=== PATIENT | male | born 1965 | race Two or more races ===

== ENCOUNTER → 2021-02-26 15:16 | Outpatient (BNVA) | payer MEDICAID, SELFPAY | PROVIDERS: PCP Internal Medicine; Visit Provider Urology | DX: N40.0 Benign prostatic hyperplasia without lower urinary tract symptoms (principal); N52.9 Male erectile dysfunction, unspecified | CPT/HCPCS: 51798; 81002; 99212 ==

== ENCOUNTER → 2022-02-27 13:36 | Outpatient (BNVA) | payer MEDICAID, SELFPAY | PROVIDERS: PCP Internal Medicine; Visit Provider Urology | DX: N40.0 Benign prostatic hyperplasia without lower urinary tract symptoms (principal); N52.9 Male erectile dysfunction, unspecified | CPT/HCPCS: 51798; 99212 ==

== ENCOUNTER 2023-03-01 08:17 | Outpatient (REF) | payer OTHER, SELFPAY ==
[2023-03-01 09:38] LABS: Prostate Specific Antigen 1.06 ng/mL (<0.05-4.0)
== END 2023-03-01 08:18 | disposition home or self-care (01) ==
LOC: HO.LAB 08:17
PROVIDERS: PCP Internal Medicine; Visit Provider Urology
DX: Z12.5 Encounter for screening for malignant neoplasm of prostate (principal); N40.1 Benign prostatic hyperplasia with lower urinary tract symptoms; N13.8 Other obstructive and reflux uropathy; N52.9 Male erectile dysfunction, unspecified
CPT/HCPCS: 36415; 84153

== ENCOUNTER → 2023-03-05 13:26 | Outpatient (BNVA) | payer OTHER, SELFPAY | PROVIDERS: PCP Internal Medicine; Visit Provider Urology | DX: N40.1 Benign prostatic hyperplasia with lower urinary tract symptoms (principal); R39.15 Urgency of urination; N52.9 Male erectile dysfunction, unspecified | CPT/HCPCS: 99212 ==

== ENCOUNTER 2023-06-10 09:28 | Outpatient (AMB) | payer OTHER, SELFPAY ==
--- NOTE | 2023-06-10 09:39 | A.OFFVIS_ITS ---
Intake Intake Visit Reasons: 3m follow up/PVR Intake Note: Patient is present for Follow Up PVR Urology Med: Tadalafil, Sildenafil, Antibiotic Allergy: Penicillin Blood Thinner: Aspirin [facility] PVR: 488ml Allergies penicillin V Allergy (Unknown, Verified 06/10/23 09:40) anaphylaxis HPI HPI Comments History of Present Illness Details Mr. Zuluaga is a male. He is a patient of Dr. Roman. He is here for reevaluation of his lower urinary tract symptoms. - lower urinary tract symptoms - erectile dysfunction Tamazight translation provided in the office by qualified medical records analyst Continues to do well with sildenafil 100 mg on demand Effective bladder voiding Lower Urinary Tract Symptoms: PSA low Symptoms controlled Current visit is for further evaluation of, predominate irritative symptoms. Current treatment includes observation. Prior treatments include procedure - TURP 2013, MISAEL 04/24 - bladder neck contraction. Prostate Symptom Score 06/24 Severe (20+), Bother 2 08/24 , Moderate (9-19), Bother 2 07/26 , Mild (0-8), Bother 3. Symptoms include frequency, intermittency, urgency,, and are improving 07/26 , frequency, and are stable. PSA 05/24 1.8 06/25 1.0, 02/25 2.3, 02/26 0.8, 02/28 1.1 Prostate volume < 30 gm. Associated conditions CAD No CVA No diabetes Yes elevated PSA No erectile dysfunction yes Treatment plan f/u in 12m Erectile dysfunction: In setting of diabetes Prescription provided for 100 mg tablet Procedure(s)/Diagnosis causing dysfunction include diabetes. Current treatment includes Viagra/sildenafil. At this time he experiences erections 07/26 are partial and adequate for vaginal penetration, that undergo rapid detumesence after penetration, TONE 8-11 Moderate ED 02/24 , are full, rigid and adequate for vaginal penetration. Nocturnal erections do not occur. Currently they are in a stable relationship. Associated problems hypertension Yes diabetes Yes dyslipidemia Yes depression No stress No decreased libido No pelvic surgery No Overall he is satisfied with the current management. Therapeutic plan includes maintaining current therapy PFSH Medical History Arthritis Bipolar disorder Bladder neck contracture BPH w/o urinary obs/LUTS Diabetic autonomic neuropathy associated with secondary diabetes mellitus H/O urinary frequency Neurogenic bladder Weak urinary stream Surgical History History of surgery Review of Systems Const Denies chills and Denies fever(s) Card Reports no additional complaints and Denies syncope Resp Denies cough GI Denies abdominal pain and Denies heartburn Reports as per HPI and Denies change in libido Neuro Denies syncope Psych Denies change in libido Endo Denies change in libido Physical Exam Const General: cooperative, healthy appearing, comfortable and no acute distress Orientation/consciousness: patient oriented x3 HEENT Face and sinus: Yes normal facial exam Mouth: moist mucous membranes Neck Neck: Yes normal visual inspection, Yes full ROM and Yes trachea midline Chest Chest palpation & inspection: normal inspection of the chest Resp Effort & Inspection: normal respiratory effort, able to speak in complete sentences and no respiratory distress GI Inspection: Yes normal to inspection Back/Spine/Pelvis Cervical Spine: normal cervical lordosis Thoracic/Lumbar Spine: thoracic and lumbar spine normal to inspection Skin General skin exam: no rashes or lesions noted Neuro General: patient oriented x3, gait normal, tone normal and moves all extremities Extrem General: Yes normal to inspection and Yes capillary refill normal Office Procedures Post Void Residual Post Residual Void Post Void Residual (PVR): 488 [id number] Void Residual by ultrasound Results AMB Urinalysis, Automated UA Leukoctes 0 Teo/uL Last Edit by DAVID Lacy on 06/10/23 09:46 UA Nitrite Negative Last Edit by DAVID Lacy on 06/10/23 09:46 UA Urobilinogen 0.2 mg/dL Last Edit by DAVID Lacy on 06/10/23 09:4 6 UA Protein 0 mg/dL Last Edit by DAVID Lacy on 06/10/23 09:46 UA pH 6.0 Last Edit by DAVID Lacy on 06/10/23 09:46 UA Blood 0 Kennedy/uL Last Edit by DAVID Lacy on 06/10/23 09:46 UA Specific [place] 1.010 Last Edit by DAVID Lacy on 06/10/23 09: 46 UA Ketone Negative Last Edit by DAVID Lacy on 06/10/23 09:46 UA Bilirubin 0 mg/dL Last Edit by DAVID Lacy on 06/10/23 09:46 UA Glucose 0 mg/dL Last Edit by DAVID Lacy on 06/10/23 09:46 Results Reviewed Results Reviewed: Laboratory Last Values Urine pH (Auto) 6.0 06/10/23 09:41 Specific [place] (Auto) 1.010 06/10/23 09:41 Urine Protein (Auto) 0 mg/dL 06/10/23 09:41 Glucose (UA)(Auto) 0 mg/dL 06/10/23 09:41 Urine Ketones (Auto) Negative 06/10/23 09:41 Urine Blood (Auto) 0 Kennedy/uL 06/10/23 09:41 Urine Nitrite (Auto) Negative 06/10/23 09:41 Urine Bilirubin (Auto) 0 mg/dL 06/10/23 09:41 Urine Urobilinogen (Auto) 0.2 mg/dL 06/10/23 09:41 Leukocyte Esterase (Auto) 0 Teo/uL 06/10/23 09:41 Assessment & Plan Assessment & Plan (1) Urinary urgency: Code(s): R39.15 - Urgency of urination (2) Erectile dysfunction: Code(s): N52.9 - Male erectile dysfunction, unspecified Plan Two month follow-up Orders: Orders AMB Urinalysis Automated Today Z13.9 - Encounter for screening, unspecified AMB Post Void Residual by ultrasound Today N40.0 - Benign prostatic hyperplasia without lower urinary tract symptoms Patient Instructions: Imaging studies, laboratory and physical exam results were discussed and reviewed in detail. No major barriers to patient understanding were identified. An opportunity to ask questions regarding the treatment plan was provided. All questions were answered. The patient expressed understanding and agreement with the above treatment plan. The patient is aware they should contact our office by phone for worsening of their current condition or the appearance of new urologic symptoms. Compliance is encouraged with any medications and followup testing that is ordered. It is a privilege to participate in the urologic care of your patient. If you have any questions or concerns regarding treatment for the above conditions, or other urologic issues, please do not hesitate to contact me. The office telephone contact is [phone]. This note is constructed using voice recognition software. While every effort has been made to ensure accuracy vault clerk errors may have been included. Yours sincerely, Dr Wilton Boss MD, F[facility] - Urology Providers of Expert, Compassionate Care for the Genitourinary System Coding Level of Care Code Est Pt Level 4 (54387) Diagnoses Urinary urgency R39.15 Erectile dysfunction N52.9 CPT Codes Post Residual Void - PVR CPT Code: 05847-Vish Void Residual by ultrasound ([id number])
== END 2023-06-10 11:43 | disposition home or self-care (01) ==
PROVIDERS: Visit Provider Urology
DX: R39.15 Urgency of urination (principal); E11.69 Type 2 diabetes mellitus with other specified complication; N52.9 Male erectile dysfunction, unspecified
CPT/HCPCS: 99213

== ENCOUNTER → 2023-06-10 09:28 | Outpatient (BNVA) | payer OTHER, SELFPAY | PROVIDERS: Visit Provider Urology | DX: R39.15 Urgency of urination (principal); N52.9 Male erectile dysfunction, unspecified | CPT/HCPCS: 51798; 99212 ==

== ENCOUNTER 2024-06-07 13:19 | Outpatient (AMB) | payer OTHER, SELFPAY ==
--- NOTE | 2024-06-07 13:22 | A.OFFVIS_ITS ---
Intake Visit Reasons: 1Y Follow Up-PVR Intake Note: Patient is Present for PVR/ Urology Med: Tadalafil, Sildenafil Antibiotic Allergy: Penicillin Blood Thinner: Aspirin Last PVR: 488 Todays PVR: 461 Costumed Character Required: Yes Costumed Character Language: Kinyarwanda Allergies penicillin V Allergy (Unknown, Verified 06/10/23 09:40) anaphylaxis HPI Comments Details: Mr. Zuluaga is a male. He is a patient of Dr. Roman. He is here for reevaluation of his lower urinary tract symptoms. - lower urinary tract symptoms - erectile dysfunction Kinyarwanda translation provided in the office by qualified medical services assistant Large PVR 460 PSA remains low Describes effective urinary stream Only waking once at night Multiple prior bladder neck procedures which was opened on last cystoscopy Lower Urinary Tract Symptoms: Impaired contractility secondary to diabetes PSA low Symptoms controlled Current visit is for further evaluation of, predominate imitative symptoms. Current treatment includes observation. Prior treatments include procedure - TURP 2013, MISAEL 04/24 - bladder neck contraction. Prostate Symptom Score 06/24 Severe (20+), Bother 2 08/24 , Moderate (9-19), Bother 2 07/26 , Mild (0-8), Bother 3. Symptoms include frequency, intermittency, urgency,, and are improving 07/26 , frequency, and are stable. PSA 05/24 1.8 06/25 1.0, 02/25 2.3, 02/26 0.8, 02/28 1.1 Prostate volume < 30 gm erectile dysfunction yes Treatment plan f/u in 12m Erectile dysfunction: In setting of diabetes Prescription provided for 100 mg tablet Procedure(s)/Diagnosis causing dysfunction include diabetes. Current treatment includes Viagra/sildenafil. At this time he experiences erections 07/26 are partial and adequate for vaginal penetration, that undergo rapid detumesence after penetration, TONE 8-11 Moderate ED 02/24 , are full, rigid and adequate for vaginal penetration. Nocturnal erections do not occur. Currently they are in a stable relationship. Associated problems hypertension Yes diabetes Yes dyslipidemia Yes depression No stress No decreased libido No pelvic surgery No Overall he is satisfied with the current management. Therapeutic plan includes maintaining current therapy PFSH Medical History Arthritis Bipolar disorder Bladder neck contracture BPH w/o urinary obs/LUTS Diabetic autonomic neuropathy associated with secondary diabetes mellitus H/O urinary frequency Neurogenic bladder Weak urinary stream Surgical History History of surgery Review of Systems Const Denies chills and Denies fever(s) Card Reports no additional complaints and Denies syncope Resp Denies cough GI Denies abdominal pain and Denies heartburn Reports as per HPI and Denies change in libido Neuro Denies syncope Psych Denies change in libido Endo Denies change in libido Physical Exam Const General: cooperative, healthy appearing, comfortable and no acute distress Orientation/consciousness: patient oriented x3 HEENT Face and sinus: Yes normal facial exam Mouth: moist mucous membranes Neck Neck: Yes normal visual inspection, Yes full ROM and Yes trachea midline Chest Chest palpation & inspection: normal inspection of the chest Resp Effort & Inspection: normal respiratory effort, able to speak in complete sentences and no respiratory distress GI Inspection: Yes normal to inspection Back/Spine/Pelvis Cervical Spine: normal cervical lordosis Thoracic/Lumbar Spine: thoracic and lumbar spine normal to inspection Skin General skin exam: no rashes or lesions noted Neuro General: patient oriented x3, gait normal, tone normal and moves all extremities Extrem General: Yes normal to inspection and Yes capillary refill normal Office Procedures Post Void Residual Post Residual Void Post Void Residual (PVR): [id number] Void Residual by ultrasound Assessment & Plan Assessment & Plan (1) Erectile dysfunction: Code(s): N52.9 - Male erectile dysfunction, unspecified Category: Medical (2) BPH w/o urinary obs/LUTS: Code(s): N40.0 - Benign prostatic hyperplasia without lower urinary tract symptoms Category: Medical Plan Twelve month follow-up Patient Instructions: Imaging studies, laboratory and physical exam results were discussed and reviewed in detail. No major barriers to patient understanding were identified. An opportunity to ask questions regarding the treatment plan was provided. All questions were answered. The patient expressed understanding and agreement with the above treatment plan. The patient is aware they should contact our office by phone for worsening of their current condition or the appearance of new urologic symptoms. Compliance is encouraged with any medications and followup testing that is ordered. It is a privilege to participate in the urologic care of your patient. If you have any questions or concerns regarding treatment for the above conditions, or other urologic issues, please do not hesitate to contact me. The office telephone contact is [phone]. This note is constructed using voice recognition software. While every effort has been made to ensure accuracy top closer errors may have been included. Yours sincerely, Dr Wilton Boss MD, F[facility] - Urology Providers of Expert, Compassionate Care for the Genitourinary System Coding Level of Care Code Est Pt Level 4 (15783) Diagnoses Erectile dysfunction N52.9 BPH w/o urinary obs/LUTS N40.0 CPT Codes Post Residual Void - PVR CPT Code: 33754-Azab Void Residual by ultrasound ([id number])
== END 2024-06-07 13:38 | disposition home or self-care (01) ==
PROVIDERS: PCP Internal Medicine; Visit Provider Urology
DX: N52.9 Male erectile dysfunction, unspecified (principal); N40.0 Benign prostatic hyperplasia without lower urinary tract symptoms
CPT/HCPCS: 99214

== ENCOUNTER → 2024-06-07 13:19 | Outpatient (BNVA) | payer OTHER, SELFPAY | PROVIDERS: PCP Internal Medicine; Visit Provider Urology | DX: N52.9 Male erectile dysfunction, unspecified (principal); N40.0 Benign prostatic hyperplasia without lower urinary tract symptoms | CPT/HCPCS: 51798; 99212 ==

== ENCOUNTER 2025-07-18 11:08 | Outpatient (AMB) | payer OTHER, SELFPAY ==
--- NOTE | 2025-07-18 11:20 | MHC.OFFVIS ---
Intake Visit Reasons: yearly follow up/PVR Intake Note: patient presents today for: 1yr follow up/PVR urology medications: none blood thinners: aspirin today's PVR: 0mls Hearing Therapy Teacher Required: Yes Accompanied by: Self / Same As Patient Allergies penicillin V Allergy (Unknown, Verified 07/18/25 11:21) anaphylaxis HPI Comments Details: Mr. Zuluaga is a male. He is a patient of Dr. Roman. He is here for reevaluation of his lower urinary tract symptoms. - lower urinary tract symptoms - erectile dysfunction Divehi translation provided in the office by qualified medical administrative technician Effective bladder emptying Remain on tadalafil 5 mg daily 12 month follow-up Lower Urinary Tract Symptoms: Impaired contractility secondary to diabetes PSA low Symptoms controlled Current visit is for further evaluation of, predominate imitative symptoms. Current treatment includes observation. Prior treatments include procedure - TURP 2013, MISAEL 04/24 - bladder neck contraction. Prostate Symptom Score 06/24 Severe (20+), Bother 2 08/24 , Moderate (9-19), Bother 2 07/26 , Mild (0-8), Bother 3. Symptoms include frequency, intermittency, urgency,, and are improving 07/26 , frequency, and are stable. PSA 05/24 1.8 06/25 1.0, 02/25 2.3, 02/26 0.8, 02/28 1.1 Prostate volume < 30 gm erectile dysfunction yes Treatment plan f/u in 12m Erectile dysfunction: In setting of diabetes Prescription provided for 100 mg tablet Procedure(s)/Diagnosis causing dysfunction include diabetes. Current treatment includes Viagra/sildenafil. At this time he experiences erections 07/26 are partial and adequate for vaginal penetration, that undergo rapid detumesence after penetration, TONE 8-11 Moderate ED 02/24 , are full, rigid and adequate for vaginal penetration. Nocturnal erections do not occur. Currently they are in a stable relationship. Associated problems hypertension Yes diabetes Yes dyslipidemia Yes depression No stress No decreased libido No pelvic surgery No Overall he is satisfied with the current management. Therapeutic plan includes maintaining current therapy PFSH Medical History Arthritis Bipolar disorder Bladder neck contracture BPH w/o urinary obs/LUTS Diabetic autonomic neuropathy associated with secondary diabetes mellitus H/O urinary frequency Neurogenic bladder Weak urinary stream Surgical History History of surgery Results AMB Urinalysis, Automated UA Leukoctes 0 Teo/uL Last Edit by MORE Church on 07/18/25 16:00 UA Nitrite Last Edit by Aileen Oliva, [facility] on 07/18/25 16:00 UA Urobilinogen 0.2 mg/dL Last Edit by Aileen Oliva, [facility] on 07/18/25 16:00 UA Protein 0 mg/dL Last Edit by Aileen Oliva, [facility] on 07/18/25 16:00 UA pH 6.5 Last Edit by Aileen Oliva, [facility] on 07/18/25 16:00 UA Blood 0 Kennedy/uL Last Edit by Aileen Oliva, [facility] on 07/18/25 16:00 UA Specific [place] 1.005 Last Edit by Aileen Oliva, [facility] on 07/18/25 16:00 UA Ketone Last Edit by Aileen Oliva, [facility] on 07/18/25 16:00 UA Bilirubin 0 mg/dL Last Edit by Aileen Oliva, [facility] on 07/18/25 16:00 UA Glucose 0 mg/dL Last Edit by Aileen Oliva [facility] on 07/18/25 16:00 Assessment & Plan Assessment & Plan Orders: Orders AMB Urinalysis Automated Today Z13.9 - Encounter for screening, unspecified Medications: Changed From sildenafil administer 60 minutes before intended activity 100 mg PO .prn 30 days PRN 30 tabs 1RF sexual activity N52.9 - Male erectile dysfunction, unspecified To sildenafil administer 60 minutes before intended activity - [id number] [facility] GroupGDRX Member [id number] 100 mg PO ONCE 30 days PRN 30 tabs 1RF sexual activity N52.9 - Male erectile dysfunction, unspecified Refilled tadalafil 5 mg PO DAILY 90 days 90 tabs 1RF E11.69 - Type 2 diabetes mellitus with other specified complication, N52.1 - Erectile dysfunction due to diseases classified elsewhere, R39.15 - Urgency of urination Coding
--- OUTSIDE RECORDS SUMMARY | 2025-07-18 14:19 | XMS_ITS | Clinical Summary ---
Author Organization [address] [place] [address] [place] [phone] Phone Care Team Providers Care Frame Pulley Mortising Machine Operator Name Role Phone Ileana Roman MD Primary Care Provider [phone] Allergies Active Allergy Reactions Criticality Noted Date Comments Lisinopril Congestion of the throat,Sore Throat Medium 10/05/2024 Penicillin G Rash Medium 10/05/2024 Medications aspirin 81 mg EC tablet Take 1 tablet (81 mg total) by mouth 1 (one) time each day. Active amLODIPine (NORVASC) 10 mg tablet 07/11/2024 Active atorvastatin (LIPITOR) 20 mg tablet 10/17/2020 Active carvediloL (COREG) 25 mg tablet 10/31/2020 Active clonazePAM (KlonoPIN) 0.5 mg tablet 10/04/2020 Active Breo Ellipta 200-25 mcg/dose inhaler 09/11/2024 Active gabapentin (NEURONTIN) 100 mg capsule Take 1 capsule (100 mg total) by mouth. Active indapamide (LOZOL) 1.25 mg tablet 02/23/2024 Active metFORMIN (GLUCOPHAGE) 500 mg tablet 08/22/2024 Activ e omeprazole (PriLOSEC) [address] capsule 11/02/2020 Activ e Vitamin B-2 100 mg tablet 09/18/2024 Active cyclobenzaprine (FLEXERIL) 10 mg tablet Take 1 tablet (10 mg total) by mouth 2 (two) times a day if needed for muscle spasms for up to 7 days. 14 each 11/19/2024 Active cetirizine (ZyrTEC) 10 mg tablet Take 1 tablet (10 mg total) by mouth 1 (one) time each day. 30 each 12/01/2024 Active Active Problems No known active problems Medical History Medical History Date Comments Diabetes mellitus ([facility] V24, [facility] V28) Bipolar disorder ([facility] V24, [facility] V28) Arthritis Hypertension Social History Tobacco Use Types Packs/Day Years Used Date Smoking Tobacco: Former Cigarettes Smokeless Tobacco: Never Tobacco Cessation:Counseling Given: Not Answered Alcohol Use Standard Drinks/Week Comments Never 0 (1 standard drink = 0.6 oz pur e alcohol) Sex and Gender Information Value Date Recorded Sex Assigned at Male 12/12/2024 5:13 PM EST Legal Sex Male 2:14 AM EST Gender Identity Male 12/12/2024 5:13 PM EST Sexual Orientation Straight 12/12/2024 5: 13 PM EST Obstetrics History Last Filed Vital Signs Vital Sign Reading Time Taken Comments Blood Pressure 167/80 01/15/2025 7:23 AM EDT Pulse 79 01/15/2025 7:23 AM EDT Temperature 36.6 C (97.9 F) 01/15/2025 7:23 AM EDT Respiratory Rate 20 01/15/2025 7:23 AM EDT Oxygen Saturation 96% 01/15/2025 7:23 AM EDT Inhaled Oxygen Concentration - - Weight 95.7 kg (211 lb) 01/15/2025 7:23 AM EDT Height 172.7 cm (5' 8 ) 01/15/2025 7:23 AM EDT Body Mass Index 32.08 01/15/2025 7:23 AM EDT Plan of Treatment Health Maintenance Due Date Last Done Comments Diabetes: Annual Foot Exam 1973 Diabetes: Annual Retina Eye Exam 1973 HIV Screening 10/11/2022 Hepatitis C Screening 10/11/2022 Social Influencers of Health Screening 10/11/2022 Colorectal Cancer Screening: Colonoscopy 03/17/2023 03/17/2013 Diabetes: Annual Urine Albumin-Creatinine Ratio (uACR) 10/04/2024 Depression Screening 11/08/2024 Diabetes: Blood Sugar Control Test (HGBA1C) 01/03/2025 07/03/2024, 07/03/2024, 09/03/2022 Influenza Vaccine (#1) 2025 , 11/25/2023, 07/24/2022, Additional history exists Diabetes: Annual GFR (Glomerular Filtration Rate) 11/30/2025 11/30/2024, 11/19/2024 Hypertension/CHF/CAD Annual BMP Blood Test 11/30/2025 11/30/2024, 11/19/2024 Cholesterol Screening (Lipid Panel) 09/03/2027 09/03/2022 DTaP,Tdap,and Td Vaccines (2 - Td or Tdap) 10/20/2028 10/20/2018 Zoster Vaccines Completed 03/26/2021, 01/07, 10/21/2018 Pneumococcal Vaccine: 50+ Years Completed 05/27/2023, 07/08/2018, 02/24/2016, Additional history exists COVID-19 Vaccine Completed 07/11/2024, , 03/17/2022, Additional history exists RSV Immunization Adult Patients Completed 10/09/2024 HIB Vaccines Aged Out No longer eligi ble based on patient's age to complete this topic HPV Vaccines Aged Out No longer eligi ble based on patient's age to complete this topic Hepatitis A Vaccines Aged Out No long er eligible based on patient's age to complete this topic Hepatitis B Vaccines Aged Out No long er eligible based on patient's age to complete this topic IPV Vaccines Aged Out No longer eligi ble based on patient's age to complete this topic MMR Vaccines Aged Out No longer eligi ble based on patient's age to complete this topic Meningococcal ACWY Vaccine Aged Out N o longer eligible based on patient's age to complete this topic Meningococcal B Vaccine Aged Out No l onger eligible based on patient's age to complete this topic RSV Immunization Patients Under 20 months Aged Out No longer eligible based on patient's age to complete this topic Varicella Vaccines Aged Out No longer eligible based on patient's age to complete this topic Procedures Procedure Name Priority Date/Time Associated Diagnosis Comments BASIC METABOLIC PANEL STAT 11/30/2024 8:54 PM EST EXTERNAL COLONOSCOPY REPORT Routine 03/17/2013 3:13 PM EDT from Last 3 Months or Most Recently Relevant to Health Maintenance Results * (ABNORMAL) Basic metabolic panel (11/30/2024 8:54 PM EST) Sodium 134 133 - 145 mmol/L LAB CHEMISTRY METHOD 11/30/2024 9:40 PM [facility] Potassium 3.7 3.5 - 5.5 mmol/L LAB CHEMISTRY METHOD 11/30/2024 9:40 PM [facility] Chloride 99 96 - 110 mmol/L LAB CHEMISTRY METHOD 11/30/2024 9:40 PM [facility] CO2 28 21 - 32 mmol/L LAB CHEMISTRY METHOD 11/30/2024 9:40 PM [facility] Anion Gap 7 3 - 11 LAB CHEMISTRY METHOD 11/30/2024 9:40 PM [facility] Glucose 143(H) 70 - 100 mg/dL LAB CHEMISTRY METHOD 11/30/2024 9:40 PM [facility] BUN 13 5 - 25 mg/dL LAB CHEMISTRY METHOD 11/30/2024 9:40 PM [facility] Creatinine 1.01 0.70 - 1.30 mg/dL LAB CHEMISTRY METHOD 11/30/2024 9:40 PM [facility] eGFR 85 >=60 mL/min/1. 73m2 LAB CHEMISTRY METHOD 11/30/2024 9:40 PM [facility] Comment:Calculation based on the Chronic Kidney Disease Epidemiology Collaboration (CKD-EPI) equation refit without adjustment for race. BUN/Creatinine Ratio 12.9 LAB CHEMISTRY METHOD 11/30/2024 9:40 PM [facility] Calcium 8.9 8.5 - 10.5 mg/dL LAB CHEMISTRY METHOD 11/30/2024 9:40 PM [facility] Blood Venous blood specimen / Unknown Venipuncture / Unknown 11/30/2024 8:54 PM EST 11/30/2024 9:14 PM EST [facility] BLOOD ORDERABLES Final Resul t [facility] [address] [place] [address], * External Colonoscopy Report (03/17/2013 3:13 PM EDT) Anatomical Region Laterality Modality Endoscopy Historical Provider GI~PROCEDURE ORDERABLES F inal Result from Last 3 Months or Most Recently Relevant to Health Maintenance [place] [address] [address] [place] [address] [id number] [employer] [place] [employer] [address] [place] [address] Care Teams Frame Pulley Mortising Machine Operator Relationship Specialty Start Date End Date Ileana Roman MD [address] [place] [address] PCP - General 05/05/13
--- OUTSIDE RECORDS SUMMARY | 2025-07-18 14:19 | XMS_ITS | Encounter Summary ---
Author Organization [facility] Address [address] [place] [address] Phone Care Team Providers Care Spring Tacker Name Role Phone Ileana Roman MD Primary Care Provider +1- [phone] Encounter Details Date Type Department Care Team (Late st Contact Info) Description 05/12/2022 Documentation Only [facility] [address] [place] [address] Leonid Medrano MD [address] [place] [address] [place] [address] Social History Tobacco Use Types Packs/Day Years Used Date Smoking Tobacco: Former Cigarettes Q uit: 06/10/1991 Comments:Smoking History Inf o:Every day Sex and Gender Information Value Date Recorded Sex Assigned at Not on file Legal Sex Male 4:33 PM EST Gender Identity Not on file Sexual Orientation Not on file documented as of this encounter Plan of Treatment Upcoming Encounters Date Type Department Care Team (Late st Contact Info) Description 08/02/2025 10:40 AM EDT Office Visit [facility] [address] [place] [address] Ck Trinidad MD [address] [place] [address] [place] [address] documented as of this encounter Visit Diagnoses Not on filedocumented in this encounter Care Teams Spring Tacker Relationship Specialty Start Date End Date Ileana Roman MD [address] [facility] [place], [place] PCP - General 09/12/19 documented as of this encounter
--- OUTSIDE RECORDS SUMMARY | 2025-07-18 14:19 | XMS_ITS | Encounter Summary ---
Author Organization [facility] Address [address] [place] [address] Phone Care Team Providers Care Space Systems Operations Craftsman Name Role Phone Ileana Roman MD Primary Care Provider +1- [phone] Encounter Details Date Type Department Care Team (Late st Contact Info) Description 08/02/2023 Orders Only [facility] [address] [place] [address] Philip Bautista PA [address] [place] [address] [place] [address] Chronic kidney disease stage 2; Hypertensive disorder; Type 2 diabetes mellitus without complication (HCC) Social History Tobacco Use Types Packs/Day Years [...] Visit [facility] [address] [place] [address] Ck Trinidad MD [address] [place] [address] [place] [address] documented as of this encounter Procedures Procedure Name Priority Date/Time Associated Diagnosis Comments PROTEIN / CREATININE RATIO, URINE Routine 08/10/2023 1:21 PM EDT Chronic kidney disease stage 2 Hypertensive disorder Type 2 diabetes mellitus without complication (HCC) URINALYSIS WITH MICROSCOPIC Routine 08/10/2023 1:21 PM EDT Chronic kidney disease stage 2 Hypertensive disorder Type 2 diabetes mellitus without complication (HCC) IRON PANEL (FE, TIBC, TSAT) Routine 08/10/2023 1:19 PM EDT Chronic kidney disease stage 2 Hypertensive disorder Type 2 diabetes mellitus without complication (HCC) VITAMIN D 25 HYDROXY Routine 08/10/2023 1:19 PM EDT Chronic kidney disease stage 2 Hypertensive disorder Type 2 diabetes mellitus without complication (HCC) CBC AND DIFFERENTIAL Routine 08/10/2023 1:19 PM EDT Chronic kidney disease stage 2 Hypertensive disorder Type 2 diabetes mellitus without complication (HCC) HEMOGLOBIN A1C Routine 08/10/2023 1:19 PM EDT Chronic kidney disease stage 2 Hypertensive disorder Type 2 diabetes mellitus without complication (HCC) RENAL FUNCTION PANEL Routine 08/10/2023 1:19 PM EDT Chronic kidney disease stage 2 Hypertensive disorder Type 2 diabetes mellitus without complication (HCC) documented in this encounter Results * Urine Protein / creatinine ratio (08/10/2023 1:21 PM EDT) Protein/Creat ine Ratio Unable to calculate (0-0.2) [facility] Protein, Urine <4 MG/DL [facility] Creatinine, Urine 36.5 MG/DL [facility] Comment: Testing performed or reported by [facility], a Service of [facility], [address] [place] [address] Baljinder Syed MD, Crew Caller [facility]# [id number] Urine specimen (specimen) Urine specimen obtained by clean catch procedure / Unknown 08/10/2023 1:21 PM EDT 08/10/2023 1:50 PM EDT Philip [facility] URINE ORDERABLES Final Re sult [facility] * Urinalysis with microscopic (08/10/2023 1:21 PM EDT) Appearance YELLOW [facility] Comment:CLEAR Specific Meridian 1.009 (1.002-1. 030) [facility] pH Urine 7.0 (5.0-8.0) [facility] Albumin, Urine NEGATIVE (NEG) [facility] Glucose, Ur NEGATIVE (NEG) [facility] Ketones, Urine NEGATIVE (NEG) [facility] Bilirubin Urine NEGATIVE (NEG) [facility] Hemoglobin Presence in Urine NEGATIVE (NEG) [facility] Nitrite, Urine NEGATIVE (NEG) [facility] Leukocyte Esterase Urine NEGATIVE (NEG) [facility] Urobilinogen Urine NORMAL (NORM) MG/DL [facility] WBC, Urine <1 (0-5) /HPF [facility] RBC, Urine 1 (0-3) /HPF [facility] Comment: Testing performed or reported by [facility], a Service of [facility], [address] [place] [address] Baljinder Syed MD, Crew Caller CLIA# [id number] Urine specimen (specimen) Urine specimen obtained by clean catch procedure / Unknown 08/10/2023 1:21 PM EDT 08/10/2023 1:50 PM EDT Philip [facility] URINE ORDERABLES Final Re sult Performing Organization Address [facility] de Phone Number [facility] * Vitamin D 25 hydroxy (08/10/2023 1:19 PM EDT) Pathologist [facility] Vitamin D, 25-Hydroxy 40.3 (20-50) NG/ML [facility] Comment: Testing performed or reported by [facility], a Service of [facility], [address] [place] [address] Baljinder Syed MD, Crew Caller CLIA# [id number] Blood specimen (specimen) Venous blood / Unknown 08/10/2023 1:19 PM EDT 08/10/2023 1:20 PM EDT Philip [facility] BLOOD ORDERABLES Final Re sult Performing Organization Address [facility] Co de Phone Number [facility] * Renal function panel (08/10/2023 1:19 PM EDT) Glucose 90 (70-99) MG/DL [facility] BUN 16 (8-23) MG/DL [facility] Creatinine 1.0 (0.7-1.2) MG/DL [facility] Sodium 139 (133-145) MMOL/L [facility] Potassium 4.0 (3.6-5.2) MMOL/L [facility] Chloride 99 (98-107) MMOL/L [facility] Bicarbonate (CO2) 27 (22-29) MMOL/L [facility] Anion Gap 13 (4-17) [facility] Albumin 4.4 (3.4-4.8) GM/DL [facility] Calcium 9.7 (8.6-10.5) MG/DL [facility] Phosphorus, Serum 3.9 (2.5-4.5) MG/DL [facility] Est GFR Non 83 ML/MIN/1.7 3 M2 [facility] Comment: Creatinine based estimated glomerular filtration (eGFR) in adults is calculated using the National Kidney Foundation recommended 2020 CKD-EPI equation. Estimates GFR from serum creatinine, age and sex. Testing performed or reported by [facility], a Service of [facility], [address] [place] [address] Baljinder Syed MD, Crew Caller [facility]# [id number] Blood specimen (specimen) Venous blood / Unknown 08/10/2023 1:19 PM EDT 08/10/2023 1:20 PM EDT Philip [facility] BLOOD ORDERABLES Final Re sult [facility] * Iron Panel (Fe, TIBC, TSAT) (08/10/2023 1:19 PM EDT) Iron 77 (45-160) MCG/DL [facility] UIBC 209 (110-370) MCG/DL [facility] TIBC 286 (155-530) MCG/DL [facility] Iron Saturation (TSat) 27 (20-55) % [facility] Comment: Testing performed or reported by [facility], a Service of [address] [address] Baljinder Syed MD, Crew Caller CLIA# [id number] Blood specimen (specimen) Venous blood / Unknown 08/10/2023 1:19 PM EDT 08/10/2023 1:20 PM EDT Philip [facility] BLOOD ORDERABLES Final Re sult Performing Organization Address [facility] de Phone Number [facility] * (ABNORMAL) Hemoglobin A1c (08/10/2023 1:19 PM EDT) Hemoglobin A1C 6.5(H) (4.0-5.6) % [facility] Comment: MONITORING: In known diabetic patients, hemoglobin A1c targets should be discussed with health care provider. DIAGNOSTIC USE: The [place] Diabetes Association (ADA) and the World Health Organization (WHO) recommend the use of HbA1c to diagnose diabetes using a threshold of 6.5%. Patients who have an HbA1c between 5.7% and 6.4% are considered at increased risk for developing diabetes in the future. CAUTION: Falsely low HbA1c results may be observed in patients with hemolytic anemia, homozygous forms of abnormal hemoglobin (e.g. SS, CC, SC), , recent blood loss or hemoglobin F greater than 7%. Fructosamine may be used as an alternate test in these cases. REFERENCE: ADA: Standards of Medical Care in Diabetes 2020, The Journal of Clinical and Applied Research and Education Volume 43, Supplement 1 Testing performed or reported by [facility], a Service of [facility], [address] [place] [address] Baljinder Syed MD, Crew Caller [facility]# [id number] Blood specimen (specimen) Venous blood / Unknown 08/10/2023 1:19 PM EDT 08/10/2023 1:20 PM EDT Philip [facility] BLOOD ORDERABLES Final Re sult Performing Organization Address [facility] Co de Phone Number [facility] * (ABNORMAL) CBC and differential (08/10/2023 1:19 PM EDT) White Blood Cells 6.6 (4.0-11.0) K/MM3 [facility] RBC 4.65(L) (4.70-6.10 ) M/MM3 [facility] Hgb 13.2(L) (13.7-17.1 ) GM/DL [facility] Hematocrit 40.2(L) (40.5-50.0 ) % [facility] MCV 86.5 (80.0-94.0 ) FL [facility] MCH 28.4 (27.0-34.0 ) PG [facility] MCHC 32.8(L) (33.0-37.0 ) g/dL [facility] Platelets 289 (150-460) K/MM3 [facility] RDW-SD 39.2 (<47.0) FL [facility] MPV 11.0 (9.4-12.4) FL [facility] nRBC Count 0.0 #/100 WBC'S [facility] NRBC Absolute 0.0 K/MM3 [facility] Neutrophils Abs Auto 4.4 (1.3-7.0) K/MM3 [facility] Lymphocytes Relative 1.5 (0.8-3.1) K/MM3 [facility] Monocytes 0.7 (0.4-1.3) K/MM3 [facility] Eosinophils Relative 0.0 (0.0-0.4) K/MM3 [facility] Basophil ABS 0.0 (0.0-0.1) K/MM3 [facility] Granulocytes Absolute 0.0 K/MM3 [facility] Neutrophils % Auto 66.3 (44-76) % [facility] Lymphs 22.3 (15-43) % [facility] Monocytes Absolute 10.6(H) (4.5-10.5) % [facility] Eosinophils 0.0 (0-6) % [facility] Basophils Relative 0.5 (0-2) % [facility] Immature Granulocytes 0.3 % [facility] Comment: Testing performed or reported by [facility], a Service of [facility], [address] [place] [address] Baljinder Syed MD, Crew Caller [place]# [id number] Blood specimen (specimen) Venous blood / Unknown 08/10/2023 1:19 PM EDT 08/10/2023 1:20 PM EDT us Philip [facility] BLOOD ORDERABLES Final Re sult [facility] documented in this encounter Visit Diagnoses Diagnosis Chronic kidney disease stage 2 Hypertensive disorder Type 2 diabetes mellitus without complication (HCC) documented in this encounter Care Teams Space Systems Operations Craftsman Relationship Specialty Start Date End Date Ileana Roman MD [address] [place], [place] PCP - General 09/12/19 documented as of this encounter
--- OUTSIDE RECORDS SUMMARY | 2025-07-18 14:19 | XMS_ITS | Clinical Summary ---
Author Organization [facility] [place], Address [address] [place] [address] [place] [address] Phone Care Team Providers Care Visual Merchandising Coordinator Name Role Phone Ileana Roman MD Primary Care Provider +1- [phone] Allergies Active Allergy Reactions Criticality Noted Date Comments Lisinopril 07/05/2024 Other Reaction(s): dry throat Penicillins Rash Low 11/11/2020 Medications metFORMIN (FORTAMET) 500 MG 24 hr tablet Take 1 tablet by mouth 2 (two) times a day Active montelukast (Singulair) 10 MG tablet Take 1 tablet by mouth 1 (one) time each day Active ferrous sulfate 325 (65 Fe) MG tablet Take 1 tablet by mouth 1 (one) time each day Active aspirin 81 MG tablet Take 1 tablet by mouth 1 (one) time each day Active atorvastatin (LIPITOR) 20 MG tablet 0 Active clonazePAM (KlonoPIN) 0.5 MG tablet 0 Active furosemide (LASIX) 20 MG tablet 0 Active omeprazole (PriLOSEC) [address] capsule 0 Active spironolactone (ALDACTONE) 25 MG tablet 0 Active carvedilol (COREG) 25 MG tablet 0 Active OLANZapine (ZyPREXA) 10 MG tablet 0 Active gabapentin (NEURONTIN) 100 MG capsule Take 100 mg by mouth 3 (three) times a day Active acetaminophen (TYLENOL 8 HOUR) 650 MG 8 hr tablet Take 650 mg by mouth every 8 (eight) hours if needed for mild pain Do not crush, chew, or split. Active traMADol (ULTRAM) 50 MG tablet Take 50 mg by mouth every 6 (six) hours if needed for moderate pain Active losartan (COZAAR) 100 MG tablet Take 100 mg by mouth 1 (one) time each day 3 Active amLODIPine (NORVASC) 5 MG tablet Take 2 tablets (10 mg total) by mouth 1 (one) time each day 4 Active indapamide (LOZOL) 2.5 MG tablet Take 2.5 mg by mouth 4 Active Benralizumab (Fasenra Pen) 30 MG/ML solution auto-injector See Instructions, 30 mg Subcutaneous Infusion every 4 weeks for 3 doses and then every 8 weeks, [id number], # 1 each, 11 Refills, Maintenance, 01/08/25 8:37:00 AM EST, Partial fill upon patient request if the prescription is for a schedule II opioid drug. 5 Active doxazosin (Cardura) 2 MG tablet Take 1 tablet (2 mg total) by mouth every night 30 tablet 5 07/05/20 26 Active Active Problems Problem Noted Date Diagnosed Date Type 2 diabetes mellitus without complication Chronic kidney disease stage 2 04/22/2020 Hypertensive disorder 04/22/2020 Resolved Problems Problem Noted Date Diagnosed Date Resolved Date Anemia 04/22/2020 05/15/2021 Gout 04/22/2020 05/15/2021 Hyperlipidemia 04/22/2020 05/15/2021 Microalbuminuria 04/22/2020 05/15/2021 Renal disorder due to type 2 diabetes mellitus 04/22/2020 05/18/2022 Encounters Date Type Department Care Team Description 07/05/2025 12:30 PM EDT Office Visit [facility] [place], [address] [place] [place] [address] Ck Trinidad MD Hypertensive disorder (Primary Dx) from Last 3 Months Immunizations Immunization Administration Dates Next Due Influenza, MDCK, PF, Quadrivalent 07/11/2019 Influenza, Quadrivalent, Preservative Free 07/10 Family History Medical History Relation Comments Cancer Father & Grandfather Heart disease Father Hypertension Father Hypertension Mother Cancer Sibling Diabetes Sibling Relation Status Comments Father Mother Sibling Social History Tobacco Use Types Packs/Day Years Used Date Smoking Tobacco: Former Cigarettes Q uit: 06/10/1991 Comments:Smoking History Inf o:Every day Sex and Gender Information Value Date Recorded Sex Assigned at Not on file Legal Sex Male 4:33 PM EST Gender Identity Not on file Sexual Orientation Not on file Last Filed Vital Signs Vital Sign Reading Time Taken Comments Blood Pressure 136/84 07/05/2024 3:43 PM EDT Pulse 74 07/24/2019 12:00 PM EDT Temperature - - Respiratory Rate 16 07/24/2019 12:00 PM EDT Oxygen Saturation - - Inhaled Oxygen Concentration - - Weight 94.6 kg (208 lb 9.6 oz) 07/05/2024 3:43 P M EDT Height 174 cm (5' 8.5 ) 07/05/2024 3:43 PM EDT Body Mass Index 31.26 07/05/2024 3:43 PM EDT Plan of Treatment Upcoming Encounters Date Type Department Care Team (Late st Contact Info) Description 08/02/2025 10:40 AM EDT Office Visit [facility] [place], [address] [place] [address] Ck Trinidad MD [address] [place] [address] Health Maintenance Due Date Last Done Comments Colorectal Cancer Screening: Annual FOBT 2012 Colorectal Cancer Screening: Colonoscopy 2012 Colorectal Cancer Screening: Sigmoidoscopy 2012 Pneumococcal Vaccine: 50+ Years (3 of 3 - PCV) 07/08/2019 07/08/2018, 02/24/2016, 04/27/2015, Additional history exists Diabetes: Ophthalmology Exam 01/29/2020 Diabetes: Pedal Pulse Checked 01/29/2020 Diabetes: Sensory Foot Exam 01/29/2020 Diabetes: Visual Foot Exam 01/29/2020 Diabetes: Hemoglobin A1C 05/18/2025 025, 07/03/2024, 08/10/2023, Additional history exists Influenza Vaccine (#1) 2025 4, 07/10/2020, 07/11/2019, Additional history exists Pneumococcal Vaccine: Peds (0 to 5 Years) and At-Risk Patients (6 to 49 Years) Discontinued 07/08/2018, 02/24/2016, 04/27/2015, Additional history exists Hepatitis B Vaccine Aged Out No longe r eligible based on patient's age to complete this topic Procedures Procedure Name Priority Date/Time Associated Diagnosis Comments HEMOGLOBIN A1C Routine 02/16/2025 2:39 PM EDT from Last 3 Months or Most Recently Relevant to Health Maintenance Results * (ABNORMAL) Hemoglobin A1c (02/16/2025 2:39 PM EDT) Hemoglobin A1C 6.8(H) 4.8 - 5.6 % [facility] [place] Comment: Prediabetes: 5.7 - 6.4 Diabetes: >6.4 Glycemic control for adults with diabetes: <7.0 02/16/2025 2:39 PM EDT 02/16/2025 Philip [facility] BLOOD ORDERABLES Final Re sult [facility] [address] [place] [address] from Last 3 Months or Most Recently Relevant to Health Maintenance Insurance [facility] Care Teams Visual Merchandising Coordinator Relationship Specialty Start Date End Date Ileana Roman MD [address] [place], [place] PCP - General 09/12/19
--- OUTSIDE RECORDS SUMMARY | 2025-07-18 14:19 | XMS_ITS | Encounter Summary ---
Author Organization [facility] Address [address] [place] [address] Phone Care Team Providers Care Propagation Worker Name Role Phone Ileana Roman MD Primary Care Provider +1- [phone] Encounter Details Date Type Department Care Team (Late st Contact Info) Description 05/12/2022 Documentation Only [facility] [address] [place] [address] Leonid Medrano MD [address] [place] [address] [place] [address] Social History Tobacco Use Types [...] Visit [facility] [address] [place] [address] Ck Trinidad MD [address] [place] [address] [place] [address] documented as of this encounter Visit Diagnoses Not on filedocumented in this encounter Care Teams Propagation Worker Relationship Specialty Start Date End Date Ileana Roman MD [address] [facility] [place], [place] PCP - General 09/12/19 documented as of this encounter
== END 2025-07-18 12:23 | disposition home or self-care (01) ==
LOC: HO.HUSH 11:09
PROVIDERS: PCP Internal Medicine; Visit Provider Urology
DX: Z13.9 Encounter for screening, unspecified (principal)

== ENCOUNTER → 2025-07-18 11:08 | Outpatient (BNVA) | payer OTHER, SELFPAY | PROVIDERS: PCP Internal Medicine; Visit Provider Urology | DX: N40.1 Benign prostatic hyperplasia with lower urinary tract symptoms (principal); R39.15 Urgency of urination; N52.9 Male erectile dysfunction, unspecified | CPT/HCPCS: 81003; 99212 ==

== ENCOUNTER 2025-07-24 12:38 | Outpatient (REF) | payer OTHER, SELFPAY ==
--- NOTE | 2025-07-24 13:50 | MHC.AU.HA1 ---
Hearing Aid Evaluation Date of Visit: 07/24/25 Historical Information: Description of Hearing: Right Ear: Normal hearing ; Left Ear: Within normal sloping to severe sensorineural hearing loss Summary: Hearing test and medical clearance [facility]. Unknown etiology of asymmetric hearing, noting unremarkable MRI. ENT subsequently recommended MELENDEZ for left ear. Haja noted difficulty understanding speech and intermittent tinnitus in left ear. Hoping MELENDEZ will help ease some of his communication difficulties. Discussed options. Opted to trial rechargeable RITE, starting with dome. No interest in bluetooth at this time. Given monaural fitting, will order Phonak for rocker switch. Needs PA via [employer] insurance. Hearing Aid Prescription: Based on the individual?s shared listening needs, communication environments, dexterity, desire for connectivity, and personal preferences, the following prescription for amplification has been made: Left ear: Make, Model, Color: Phonak Audeo I70-R Color: [place] Battery Size: Rechargeable Wire Steward/Slim Tube: 1M Type of Earmold/Dome/CShell/SlimTip: Medium vented dome Accessories/Assistive Technology: Child Development Associate Teacher Plan of Care: Patient wishes to purchase hearing aids as prescribed Action Taken/Action Needed: Prior authorization to be requested. Hearing Instrument Fitting to be scheduled when materials arrive Primary Diagnosis: H90.42 SNHL Unilateral Left Side, W/Unrestricted Contralateral Hearing Signature: Provider: Aleida Calloway, [facility]
--- OUTSIDE RECORDS SUMMARY | 2025-07-24 16:40 | XMS_ITS | Clinical Summary ---
Author Organization [address] [place] [address] [place] [address] Phone Care Team Providers Care Financial Professional Name Role Phone Ileana Roman MD Primary Care Provider +1- [phone] Allergies Active Allergy Reactions Criticality Noted Date [...] History Medical History Date Comments Diabetes mellitus ([facility] V24, [facility] V28) Bipolar disorder ([facility] V24, [facility] V28) Arthritis Hypertension Social History Tobacco Use [...] mmol/L LAB CHEMISTRY METHOD 11/30/2024 9:[address] [facility] Potassium 3.7 3.5 - 5.5 mmol/L LAB CHEMISTRY METHOD 11/30/2024 9:[address] [facility] Chloride 99 96 - 110 mmol/L LAB CHEMISTRY METHOD 11/30/2024 9:[address] [facility] CO2 28 21 - 32 mmol/L LAB CHEMISTRY METHOD 11/30/2024 9:[address] [facility] Anion Gap 7 3 - 11 LAB CHEMISTRY METHOD 11/30/2024 9:[address] [facility] Glucose 143(H) 70 - 100 mg/dL LAB CHEMISTRY METHOD 11/30/2024 9:[address] [facility] BUN 13 5 - 25 mg/dL LAB CHEMISTRY METHOD 11/30/2024 9:[address] [facility] Creatinine 1.01 0.70 - 1.30 mg/dL LAB CHEMISTRY METHOD 11/30/2024 9:[address] [facility] eGFR 85 >=60 mL/min/1. 73m2 LAB CHEMISTRY METHOD 11/30/2024 9:[address] [facility] Comment:Calculation based on the Chronic Kidney Disease Epidemiology Collaboration (CKD-EPI) equation refit without adjustment for race. BUN/Creatinine Ratio 12.9 LAB CHEMISTRY METHOD 11/30/2024 9:[address] [facility] Calcium 8.9 8.5 - 10.5 mg/dL LAB CHEMISTRY METHOD 11/30/2024 9:[address] [facility] Blood Venous blood specimen / Unknown Venipuncture / Unknown 11/30/2024 8:54 PM EST 11/30/2024 9:14 PM EST Temi [facility] BLOOD ORDERABLES Final Resul t [facility] [address] [place] [address], * External Colonoscopy Report (03/17/2013 3:13 PM EDT) Anatomical Region Laterality Modality Endoscopy Historical Provider GI~PROCEDURE ORDERABLES F inal Result from Last 3 Months or Most Recently Relevant to Health Maintenance [place] [address] [address] [id number] [employer] [place] [employer]AGE [address] [place] [address] Care Teams Financial Professional Relationship Specialty Start Date End Date Ileana Roman MD [address] [place] [address] PCP - General 05/05/13
--- OUTSIDE RECORDS SUMMARY | 2025-07-24 16:40 | XMS_ITS | Encounter Summary ---
Author Organization [facility] Address [address] [place] [address] Phone Care Team Providers Care Butcher Assistant Name Role Phone Ileana Roman MD Primary Care Provider +1- [phone] Encounter Details Date Type Department Care Team (Late st Contact Info) Description 05/12/2022 Documentation Only [facility] [address] [place] [address] Leonid Medrano MD [address] [place] [address] [place] [address] Social History Tobacco Use Types [...] Visit [facility] [address] [place] [address] Ck Trinidad MD [address] [place] [address] [place] [address] documented as of this encounter Visit Diagnoses Not on filedocumented in this encounter Care Teams Butcher Assistant Relationship Specialty Start Date End Date Ileana Roman MD [address] [facility] [place], [place] PCP - General 09/12/19 documented as of this encounter
--- OUTSIDE RECORDS SUMMARY | 2025-07-24 16:40 | XMS_ITS | Encounter Summary ---
Author Organization [facility] Address [address] [place] [address] Phone Care Team Providers Care Integrated Circuit Layout Designer Name Role Phone Ileana Roamn MD Primary Care Provider +1- [phone] Encounter Details Date Type Department Care Team (Late st Contact Info) Description 08/02/2023 Orders Only [facility] [address] [place] [address] Philip Bautista PA [address] [place] [address] [place] [address] Chronic kidney disease stage 2; [...] Visit [facility] [address] [place] [address] Ck Trinidad MD [address] [place] [address] [place] [address] documented as of this encounter [...] Protein/Creat ine Ratio Unable to calculate (0-0.2) [facility] Protein, Urine <4 MG/DL [facility] Creatinine, Urine 36.5 MG/DL [facility] Comment: Testing performed or reported by [facility], a Service of [facility], [address] [place] [address] Baljinder Syed MD, C++ Professor [facility]# [id number] Urine specimen (specimen) Urine specimen obtained by clean catch procedure / Unknown 08/10/2023 1:21 PM EDT 08/10/2023 1:50 PM EDT Philip [facility] URINE ORDERABLES Final Re sult [facility] * Urinalysis with microscopic (08/10/2023 1:21 PM EDT) Appearance YELLOW [facility] Comment:CLEAR Specific [place] 1.009 (1.002-1. 030) [facility] pH Urine 7.0 (5.0-8.0) [facility] Albumin, Urine NEGATIVE (NEG) [facility] Glucose, Ur NEGATIVE (NEG) [facility] Ketones, Urine NEGATIVE (NEG) [facility] Bilirubin Urine NEGATIVE (NEG) [facility] Hemoglobin Presence in Urine NEGATIVE (NEG) [facility] Nitrite, Urine NEGATIVE (NEG) [facility] Leukocyte Esterase Urine NEGATIVE (NEG) [facility] Urobilinogen Urine NORMAL (NORM) MG/DL [facility] WBC, Urine <1 (0-5) /HPF [facility] RBC, Urine 1 (0-3) /HPF [facility] Comment: Testing performed or reported by [facility], a Service of [facility], [address] [place] [address] Baljinder Syed MD, C++ Professor CLIA# [id number] Urine specimen (specimen) Urine specimen obtained by clean catch procedure / Unknown 08/10/2023 1:21 PM EDT 08/10/2023 1:50 PM EDT Philip [facility] URINE ORDERABLES Final Re sult Performing Organization Address [facility] de Phone Number [facility] * Vitamin D 25 hydroxy (08/10/2023 1:19 PM EDT) Pathologist [facility] Vitamin D, 25-Hydroxy 40.3 (20-50) NG/ML [facility] Comment: Testing performed or reported by [facility], a Service of [facility], [address] [place] [address] Baljinder Syed MD, C++ Professor CLIA# [id number] Blood specimen (specimen) Venous blood / Unknown 08/10/2023 1:19 PM EDT 08/10/2023 1:20 PM EDT Philip [facility] BLOOD ORDERABLES Final Re sult Performing Organization Address [facility] Co de Phone Number [facility] * Renal function panel (08/10/2023 1:19 PM EDT) Glucose 90 (70-99) MG/DL [facility] BUN 16 (8-23) MG/DL [facility] Creatinine 1.0 (0.7-1.2) MG/DL [facility] Sodium 139 (133-145) MMOL/L [facility] Potassium 4.0 (3.6-5.2) MMOL/L [facility] Chloride 99 (98-107) MMOL/L [facility] Bicarbonate (CO2) 27 (22-29) MMOL/L [facility] Anion Gap 13 (4-17) [facility] Albumin 4.4 (3.4-4.8) GM/DL [facility] Calcium 9.7 (8.6-10.5) MG/DL [facility] Phosphorus, Serum 3.9 (2.5-4.5) MG/DL [facility] Est GFR Non 83 ML/MIN/1.7 3 M2 [facility] Comment: Creatinine based estimated glomerular filtration (eGFR) in adults is calculated using the National Kidney Foundation recommended 2020 CKD-EPI equation. Estimates GFR from serum creatinine, age and sex. Testing performed or reported by [facility], a Service of [facility], [address] [place] [address] Baljinder Syed MD, C++ Professor [facility]# [id number] Blood specimen (specimen) Venous blood / Unknown 08/10/2023 1:19 PM EDT 08/10/2023 1:20 PM EDT Philip [facility] BLOOD ORDERABLES Final Re sult [facility] * Iron Panel (Fe, TIBC, TSAT) (08/10/2023 1:19 PM EDT) Iron 77 (45-160) MCG/DL [facility] UIBC 209 (110-370) MCG/DL [facility] TIBC 286 (155-530) MCG/DL [facility] Iron Saturation (TSat) 27 (20-55) % [facility] Comment: Testing performed or reported by [facility], a Service of [address] [address] Baljinder Syed MD, C++ Professor CLIA# [id number] Blood specimen (specimen) Venous blood / Unknown 08/10/2023 1:19 PM EDT 08/10/2023 1:20 PM EDT Philip [facility] BLOOD ORDERABLES Final Re sult Performing Organization Address [facility] de Phone Number [facility] * (ABNORMAL) Hemoglobin A1c (08/10/2023 1:19 PM EDT) Hemoglobin A1C 6.5(H) (4.0-5.6) % [facility] Comment: MONITORING: In known diabetic patients, hemoglobin A1c targets should be discussed with health care provider. DIAGNOSTIC USE: The [place] Diabetes Association (ADA) and the World Health [...] Supplement 1 Testing performed or reported by [facility], a Service of [facility], [address] [place] [address] Baljinder Syed MD, C++ Professor [facility]# [id number] Blood specimen (specimen) Venous blood / Unknown 08/10/2023 1:19 PM EDT 08/10/2023 1:20 PM EDT Philip [facility] BLOOD ORDERABLES Final Re sult Performing Organization Address [facility] Co de Phone Number [facility] * (ABNORMAL) CBC and differential (08/10/2023 1:19 PM EDT) White Blood Cells 6.6 (4.0-11.0) K/MM3 [facility] RBC 4.65(L) (4.70-6.10 ) M/MM3 [facility] Hgb 13.2(L) (13.7-17.1 ) GM/DL [facility] Hematocrit 40.2(L) (40.5-50.0 ) % [facility] MCV 86.5 (80.0-94.0 ) FL [facility] MCH 28.4 (27.0-34.0 ) PG [facility] MCHC 32.8(L) (33.0-37.0 ) g/dL [facility] Platelets 289 (150-460) K/MM3 [facility] RDW-SD 39.2 (<47.0) FL [facility] MPV 11.0 (9.4-12.4) [place] [facility] nRBC Count 0.0 #/100 WBC'S [facility] NRBC Absolute 0.0 K/MM3 [facility] Neutrophils Abs Auto 4.4 (1.3-7.0) K/MM3 [facility] Lymphocytes Relative 1.5 (0.8-3.1) K/MM3 [facility] Monocytes 0.7 (0.4-1.3) K/MM3 [facility] Eosinophils Relative 0.0 (0.0-0.4) K/MM3 [facility] Basophil ABS 0.0 (0.0-0.1) K/MM3 [facility] Granulocytes Absolute 0.0 K/MM3 [facility] Neutrophils % Auto 66.3 (44-76) % [facility] Lymphs 22.3 (15-43) % [facility] Monocytes Absolute 10.6(H) (4.5-10.5) % [facility] Eosinophils 0.0 (0-6) % [facility] Basophils Relative 0.5 (0-2) % [facility] Immature Granulocytes 0.3 % [facility] Comment: Testing performed or reported by [facility], a Service of [facility], [address] [place] [address] Baljinder Syed MD, C++ Professor [place]# [id number] Blood specimen (specimen) Venous blood / Unknown 08/10/2023 1:19 PM EDT 08/10/2023 1:20 PM EDT us Philip [facility] BLOOD ORDERABLES Final Re sult [facility] documented in this encounter Visit Diagnoses Diagnosis Chronic kidney disease stage 2 Hypertensive disorder Type 2 diabetes mellitus without complication (HCC) documented in this encounter Care Teams Integrated Circuit Layout Designer Relationship Specialty Start Date End Date Ileana oRman MD [address] [place], [place] PCP - General 09/12/19 documented as of this encounter
--- OUTSIDE RECORDS SUMMARY | 2025-07-24 16:40 | XMS_ITS | Encounter Summary ---
Author Organization [facility] Address [address] [place] [address] Phone Care Team Providers Care Sailmaker Name Role Phone Ileana Roman MD Primary Care Provider +1- [phone] Encounter Details Date Type Department Care Team (Late st Contact Info) Description 05/12/2022 Documentation Only [facility] [address] [place] [address] Leonid Medrano MD [address] [place] [address] [place] [address] Social History Tobacco Use Types [...] Visit [facility] [address] [place] [address] Ck Trinidad MD [address] [place] [address] [place] [address] documented as of this encounter Visit Diagnoses Not on filedocumented in this encounter Care Teams Sailmaker Relationship Specialty Start Date End Date Ileana Roman MD [address] [facility] [place], [place] PCP - General 09/12/19 documented as of this encounter
--- OUTSIDE RECORDS SUMMARY | 2025-07-24 16:40 | XMS_ITS | Clinical Summary ---
Author Organization [facility] [place], Address [address] [place] [address] [place] [address] Phone Care Team Providers Care Reinsurance Claims Analyst Name Role Phone Ileana Roman MD Primary Care Provider +1- [phone] Allergies Active Allergy Reactions Criticality Noted Date [...] Visit [facility], [address] [place] [address] Ck Trinidad MD Hypertensive disorder (Primary Dx) [...] Visit [facility], [address] [place] [address] Ck Trinidad MD [address] [facility] [place] [address] Health Maintenance Due Date Last Done Comments [...] Hemoglobin A1C 6.8(H) 4.8 - 5.6 % [email or web address] [place] Comment: Prediabetes: 5.7 - 6.4 Diabetes: >6.4 Glycemic control for adults with diabetes: <7.0 02/16/2025 2:39 PM EDT 02/16/2025 Philip [facility] BLOOD ORDERABLES Final Re sult [email or web address] [place] [address] [place] [address] from Last 3 Months or Most Recently Relevant to Health Maintenance Insurance [facility] Care Teams Reinsurance Claims Analyst Relationship Specialty Start Date End Date Ileana Roman MD [address] [place], [place] PCP - General 09/12/19
== END 2025-07-24 12:39 | disposition home or self-care (01) ==
LOC: HO.HAP 12:38
PROVIDERS: Visit Provider Otolaryngology Facial Plastic Surgery
DX: Z46.1 Encounter for fitting and adjustment of hearing aid (principal); H90.42 Sensorineural hearing loss, unilateral, left ear, with unrestricted hearing on the contralateral side
CPT/HCPCS: 92590

== ENCOUNTER 2025-08-22 10:00 | Outpatient (REF) | payer OTHER, SELFPAY ==
--- OUTSIDE RECORDS SUMMARY | 2025-08-22 11:46 | XMS_ITS | Clinical Summary ---
Author Organization [facility] [place], Address [address] [place] [address] [place] [address] Phone Care Team Providers Care Colleter Name Role Phone Ileana Roman MD Primary Care Provider +1- [phone] Allergies Active Allergy Reactions Criticality Noted Date [...] day Active atorvastatin (LIPITOR) 20 MG tablet 10/17/20 20 Active clonazePAM (KlonoPIN) 0.5 MG tablet 10/04/20 20 Active omeprazole (PriLOSEC) [address] capsule 11/02/20 20 Active spironolacton e (ALDACTONE) 25 MG tablet 10/31/20 20 Active carvedilol (COREG) 25 MG tablet 10/31/20 20 Active OLANZapine (ZyPREXA) 10 MG tablet 10/04/20 20 Active gabapentin (NEURONTIN) 100 MG capsule Take [...] by mouth 1 (one) time each day 12/22/19 23 Active amLODIPine (NORVASC) 5 MG tablet Take 2 tablets (10 mg total) by mouth 1 (one) time each day 07/05/20 24 Active indapamide (LOZOL) 2.5 MG tablet Take 2.5 mg by mouth 02/24/20 24 Active Benralizumab (Fasenra Pen) 30 MG/ML solution auto-injector See Instructions, 30 mg Subcutaneous Infusion every 4 weeks for 3 doses and then every 8 weeks, [id number], # 1 each, 11 Refills, Maintenance, 01/08/25 8:37:00 AM EST, Partial fill upon patient request if the prescription is for a schedule II opioid drug. 12/08/19 25 Active doxazosin (Cardura) 2 MG tablet Take 1 tablet (2 mg total) by mouth every night 90 tablet 3 08/02/20 25 026 Active furosemide (LASIX) 20 MG tablet 09/06/20 20 025 Discontinued doxazosin (Cardura) 2 MG tablet Take 1 tablet (2 mg total) by mouth every night 30 tablet 07/05/20 25 025 Discontinued(R eorder (does not appear on AVS)) Active Problems Problem Noted Date Diagnosed Date Type 2 diabetes mellitus without complication Chronic kidney disease stage 2 04/22/2020 Hypertensive disorder 04/22/2020 Resolved Problems Problem Noted Date Diagnosed Date Resolved Date Anemia 04/22/2020 05/15/2021 Gout 04/22/2020 05/15/2021 Hyperlipidemia 04/22/2020 05/15/2021 Microalbuminuria 04/22/2020 05/15/2021 Renal disorder due to type 2 diabetes mellitus 04/22/2020 05/18/2022 Encounters Date Type Department Care Team Description 08/02/2025 10:40 AM EDT Office Visit [facility] [place], [address] [facility] [place] [address] Ck Trinidad MD Hypertensive disorder (Primary Dx) 08/02/2025 Refill [facility] [place], [address] [facility] [place] [address] Viky Lyons MA 07/05/2025 12:30 PM EDT Office Visit [facility] [address] [place] [address] Ck Trinidad MD Hypertensive disorder (Primary Dx) [...] Care Team (Late st Contact Info) Description 09/20/2025 10:50 AM EST Office Visit [facility] [address] [place] [address] Ck Trinidad MD [address] [place] [address] [place] [address] Health Maintenance Due Date Last Done Comments [...] Hemoglobin A1C 6.8(H) 4.8 - 5.6 % [facility] Comment: Prediabetes: 5.7 - 6.4 Diabetes: >6.4 Glycemic control for adults with diabetes: <7.0 02/16/2025 2:39 PM EDT 02/16/2025 us Philip [facility] BLOOD ORDERABLES Final Re sult [facility] [place] [address] [place] [address] from Last 3 Months or Most Recently Relevant to Health Maintenance Insurance [facility] Care Teams Colleter Relationship Specialty Start Date End Date Ileana Roman MD [address] [place], [place] PCP - General 09/12/19
--- OUTSIDE RECORDS SUMMARY | 2025-08-22 11:46 | XMS_ITS | Clinical Summary ---
Author Organization [address] [place] [address] [place] [address] Phone Care Team Providers Care Insurance Verification Rep Name Role Phone Ileana Roman MD Primary Care Provider +1- [phone] Allergies Active Allergy Reactions Criticality Noted Date [...] History Medical History Date Comments Diabetes mellitus ([facility] V24, [facility] V28) Bipolar disorder ([facility] V24, [facility] V28) Arthritis Hypertension Social History Tobacco Use [...] mmol/L LAB CHEMISTRY METHOD 11/30/2024 9:40 PM [facility] Potassium 3.7 3.5 - 5.5 mmol/L LAB CHEMISTRY METHOD 11/30/2024 9:40 PM [facility] Chloride 99 96 - 110 mmol/L LAB CHEMISTRY METHOD 11/30/2024 9:40 PM [facility] CO2 28 21 - 32 mmol/L LAB CHEMISTRY METHOD 11/30/2024 9:40 PM [facility] Anion Gap 7 3 - 11 LAB CHEMISTRY METHOD 11/30/2024 9:40 PM [facility] Glucose 143(H) 70 - 100 mg/dL LAB CHEMISTRY METHOD 11/30/2024 9:40 PM [facility] BUN 13 5 - 25 mg/dL LAB CHEMISTRY METHOD 11/30/2024 9:40 PM [facility] Creatinine 1.01 0.70 - 1.30 mg/dL LAB CHEMISTRY METHOD 11/30/2024 9:40 PM [facility] eGFR 85 >=60 mL/min/1. 73m2 LAB CHEMISTRY METHOD 11/30/2024 9:40 PM [facility] Comment:Calculation based on the Chronic Kidney Disease Epidemiology Collaboration (CKD-EPI) equation refit without adjustment for race. BUN/Creatinine Ratio 12.9 LAB CHEMISTRY METHOD 11/30/2024 9:40 PM [facility] Calcium 8.9 8.5 - 10.5 mg/dL LAB CHEMISTRY METHOD 11/30/2024 9:40 PM [facility] Blood Venous blood specimen / Unknown Venipuncture / Unknown 11/30/2024 8:54 PM EST 11/30/2024 9:14 PM EST Temi [facility] LAB BLOOD ORDERABLES Final Resul t [facility] ([facility] [address] [place] [address], * External Colonoscopy Report (03/17/2013 3:13 PM EDT) Anatomical Region Laterality Modality Endoscopy Historical Provider GI~PROCEDURE ORDERABLES F inal Result from Last 3 Months or Most Recently Relevant to Health Maintenance [place] [address] [place] [address] [id number] [employer]AGE [address] [place] [address] Care Teams Insurance Verification Rep Relationship Specialty Start Date End Date Ileana Roman MD [address] [place] [address] PCP - General 05/05/13
--- OUTSIDE RECORDS SUMMARY | 2025-08-22 11:46 | XMS_ITS | Encounter Summary ---
Author Organization [facility] Address [address] [place] [address] Phone Care Team Providers Care Ocean Freight Agent Name Role Phone Ileana Roman MD Primary Care Provider +1- [phone] Encounter Details Date Type Department Care Team (Late st Contact Info) Description 08/02/2023 Orders Only [facility] [address] [place] [address] Philip Bautista PA [address] [place] [address] [place] [address] Chronic kidney disease stage 2; [...] Visit [facility] [address] [place] [address] Ck Trinidad MD [address] [place] [address] [place] [address] documented as of this encounter [...] Protein/Creat ine Ratio Unable to calculate (0-0.2) [facility] Protein, Urine <4 MG/DL [facility] Creatinine, Urine 36.5 MG/DL [facility] Comment: Testing performed or reported by [facility], a Service of [facility], [address] [place] [address] Baljinder Syed MD, Endoscope Technician [facility]# [id number] Urine specimen (specimen) Urine specimen obtained by clean catch procedure / Unknown 08/10/2023 1:21 PM EDT 08/10/2023 1:50 PM EDT us Philip [facility] URINE ORDERABLES Final Re sult [facility] * Urinalysis with microscopic (08/10/2023 1:21 PM EDT) Appearance YELLOW [facility] Comment:CLEAR Specific [place] 1.009 (1.002-1. 030) [facility] pH Urine 7.0 (5.0-8.0) [facility] Albumin, Urine NEGATIVE (NEG) [facility] Glucose, Ur NEGATIVE (NEG) [facility] Ketones, Urine NEGATIVE (NEG) [facility] Bilirubin Urine NEGATIVE (NEG) [facility] Hemoglobin Presence in Urine NEGATIVE (NEG) [facility] Nitrite, Urine NEGATIVE (NEG) [facility] Leukocyte Esterase Urine NEGATIVE (NEG) [facility] Urobilinogen Urine NORMAL (NORM) MG/DL [facility] WBC, Urine <1 (0-5) /HPF [facility] RBC, Urine 1 (0-3) /HPF [facility] Comment: Testing performed or reported by [facility], a Service of [facility], [address] [place] [address] Baljinder Syed MD, Endoscope Technician CLIA# [id number] Urine specimen (specimen) Urine specimen obtained by clean catch procedure / Unknown 08/10/2023 1:21 PM EDT 08/10/2023 1:50 PM EDT Philip [facility] URINE ORDERABLES Final Re sult Performing Organization Address [facility] de Phone Number [facility] * Vitamin D 25 hydroxy (08/10/2023 1:19 PM EDT) Pathologist [facility] Vitamin D, 25-Hydroxy 40.3 (20-50) NG/ML [facility] Comment: Testing performed or reported by [facility], a Service of [facility], [address] [place] [address] Baljinder Syed MD, Endoscope Technician CLIA# [id number] Blood specimen (specimen) Venous blood / Unknown 08/10/2023 1:19 PM EDT 08/10/2023 1:20 PM EDT Philip [facility] BLOOD ORDERABLES Final Re sult Performing Organization Address [facility] Co de Phone Number [facility] * Renal function panel (08/10/2023 1:19 PM EDT) Glucose 90 (70-99) MG/DL [facility] BUN 16 (8-23) MG/DL [facility] Creatinine 1.0 (0.7-1.2) MG/DL [facility] Sodium 139 (133-145) MMOL/L [facility] Potassium 4.0 (3.6-5.2) MMOL/L [facility] Chloride 99 (98-107) MMOL/L [facility] Bicarbonate (CO2) 27 (22-29) MMOL/L [facility] Anion Gap 13 (4-17) [facility] Albumin 4.4 (3.4-4.8) GM/DL [facility] Calcium 9.7 (8.6-10.5) MG/DL [facility] Phosphorus, Serum 3.9 (2.5-4.5) MG/DL [facility] Est GFR Non 83 ML/MIN/1.7 3 M2 [facility] Comment: Creatinine based estimated glomerular filtration (eGFR) in adults is calculated using the National Kid[employer] recommended 2020 CKD-EPI equation. Estimates GFR from serum creatinine, age and sex. Testing performed or reported by [facility], a Service of [facility], [address] [place] [address] Baljinder Syed MD, Endoscope Technician [facility]# [id number] Blood specimen (specimen) Venous blood / Unknown 08/10/2023 1:19 PM EDT 08/10/2023 1:20 PM EDT Philip [facility] BLOOD ORDERABLES Final Re sult [facility] * Iron Panel (Fe, TIBC, TSAT) (08/10/2023 1:19 PM EDT) Iron 77 (45-160) MCG/DL [facility] UIBC 209 (110-370) MCG/DL [facility] TIBC 286 (155-530) MCG/DL [facility] Iron Saturation (TSat) 27 (20-55) % [facility] Comment: Testing performed or reported by [facility], a Service of [address] [address] Baljinder Syed MD, Endoscope Technician CLIA# [id number] Blood specimen (specimen) Venous blood / Unknown 08/10/2023 1:19 PM EDT 08/10/2023 1:20 PM EDT Philip [facility] BLOOD ORDERABLES Final Re sult Performing Organization Address [facility] de Phone Number [facility] * (ABNORMAL) Hemoglobin A1c (08/10/2023 1:19 PM EDT) Hemoglobin A1C 6.5(H) (4.0-5.6) % [facility] Comment: MONITORING: In known diabetic patients, hemoglobin A1c targets should be discussed with health care provider. DIAGNOSTIC USE: The [place] [employer] (ADA) and the World Health [...] Supplement 1 Testing performed or reported by [facility], a Service of [facility], [address] [place] [address] Baljinder Syed MD, Endoscope Technician [facility]# [id number] Blood specimen (specimen) Venous blood / Unknown 08/10/2023 1:19 PM EDT 08/10/2023 1:20 PM EDT Philip [facility] BLOOD ORDERABLES Final Re sult Performing Organization Address [facility] Co de Phone Number [facility] * (ABNORMAL) CBC and differential (08/10/2023 1:19 PM EDT) White Blood Cells 6.6 (4.0-11.0) K/MM3 [facility] RBC 4.65(L) (4.70-6.10 ) M/MM3 [facility] Hgb 13.2(L) (13.7-17.1 ) GM/DL [facility] Hematocrit 40.2(L) (40.5-50.0 ) % [facility] MCV 86.5 (80.0-94.0 ) FL [facility] MCH 28.4 (27.0-34.0 ) PG [facility] MCHC 32.8(L) (33.0-37.0 ) g/dL [facility] Platelets 289 (150-460) K/MM3 [facility] RDW-SD 39.2 (<47.0) FL [facility] MPV 11.0 (9.4-12.4) FL [facility] nRBC Count 0.0 #/100 WBC'S [facility] NRBC Absolute 0.0 K/MM3 [facility] Neutrophils Abs Auto 4.4 (1.3-7.0) K/MM3 [facility] Lymphocytes Relative 1.5 (0.8-3.1) K/MM3 [facility] Monocytes 0.7 (0.4-1.3) K/MM3 [facility] Eosinophils Relative 0.0 (0.0-0.4) K/MM3 [facility] Basophil ABS 0.0 (0.0-0.1) K/MM3 [facility] Granulocytes Absolute 0.0 K/MM3 [facility] Neutrophils % Auto 66.3 (44-76) % [facility] Lymphs 22.3 (15-43) % [facility] Monocytes Absolute 10.6(H) (4.5-10.5) % [facility] Eosinophils 0.0 (0-6) % [facility] Basophils Relative 0.5 (0-2) % [facility] Immature Granulocytes 0.3 % [facility] Comment: Testing performed or reported by [facility], a Service of [facility], [address] [place] [address] Baljinder Syed MD, Endoscope Technician [facility]# [id number] Blood specimen (specimen) Venous blood / Unknown 08/10/2023 1:19 PM EDT 08/10/2023 1:20 PM EDT Philip [facility] BLOOD ORDERABLES Final Re sult [facility] documented in this encounter Visit Diagnoses Diagnosis Chronic kidney disease stage 2 Hypertensive disorder Type 2 diabetes mellitus without complication (HCC) documented in this encounter Care Teams Ocean Freight Agent Relationship Specialty Start Date End Date Ileana Roman MD [address] [facility] [place], [place] PCP - General 09/12/19 documented as of this encounter
--- OUTSIDE RECORDS SUMMARY | 2025-08-22 11:46 | XMS_ITS | Encounter Summary ---
Author Organization [facility] Address [address] [place] [address] Phone Care Team Providers Care Storage Brine Worker Name Role Phone Ileana Roman MD Primary Care Provider +1- [phone] Encounter Details Date Type Department Care Team (Late st Contact Info) Description 05/12/2022 Documentation Only [facility] [address] [place] [address] Leonid Medrano MD [address] [place] [address] [place] [address] Social History Tobacco Use Types [...] Visit [facility] [address] [place] [address] Ck Trinidad MD [address] [place] [address] [place] [address] documented as of this encounter Visit Diagnoses Not on filedocumented in this encounter Care Teams Storage Brine Worker Relationship Specialty Start Date End Date Ileana Roman MD [address] [facility] [place], [place] PCP - General 11/5/19 documented as of this encounter
--- OUTSIDE RECORDS SUMMARY | 2025-08-22 11:46 | XMS_ITS | Encounter Summary ---
Author Organization [facility] Address [address] [place] [address] Phone Care Team Providers Care Fabrication Mig Welder Name Role Phone Ileana Roman MD Primary Care Provider +1- [phone] Encounter Details Date Type Department Care Team (Late st Contact Info) Description 05/12/2022 Documentation Only [facility] [address] [place] [address] Leonid Medrano MD [address] [place] [address] [place] [address] Social History Tobacco Use Types [...] [facility] [address] [place] [address] Ck Trinidad MD [address] [place] [address] [place] [address] documented as of this encounter Visit Diagnoses Not on filedocumented in this encounter Care Teams Fabrication Mig Welder Relationship Specialty Start Date End Date Ileana Roman MD [address] [facility] [place], [place] PCP - General 11/5/19 documented as of this encounter
--- NOTE | 2025-08-22 14:41 | MHC.AU.HA2 ---
Hearing Instrument Fitting- Adult- Binaural Date of Visit: 08/22/25 Hearing Instruments Dispensed: Left Ear: Make, Model, Color, Serial Number: Nathaniel Payano [id number] SN: [id number] Color: [place] Slasher Repair Warranty: 08/31/2028 Slasher Loss and Damage Warranty: 08/31/2028 [facility] Service Plan: 08/22/2026 Battery Size: Rechargeable Account Review Specialist/Slim Tube: 1M [place]old/Dome/CShell/SlimTip: Medium vented dome (no retention tail) Type of Wax Guard: CeruStop Accessories/Assistive Technology: Phonak Technical Applications Specialist FANNY SN: [id number] Summary of Fitting: Performed feedback analyzer and real ear measures. Decreased low frequencies due to sound of own voice, occlusion compensation set to medium. Discussed care, use, and rechargeability including manually turning on/off, VC use, changing domes and wax guards. Emphasized importance of daily, consistent use in acclimating to hearing aid. Did not discuss bluetooth. Recommendations: A hearing instrument follow-up was scheduled. 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
== END 2025-08-22 10:01 | disposition home or self-care (01) ==
LOC: HO.HAP 10:00
PROVIDERS: Visit Provider Otolaryngology Facial Plastic Surgery
DX: Z46.1 Encounter for fitting and adjustment of hearing aid (principal); H90.42 Sensorineural hearing loss, unilateral, left ear, with unrestricted hearing on the contralateral side
CPT/HCPCS: V5011; V5020; V5241; V5257

== ENCOUNTER 2025-09-12 11:06 | Outpatient (REF) | payer OTHER, SELFPAY ==
--- OUTSIDE RECORDS SUMMARY | 2025-09-12 13:19 | XMS_ITS | Data Portability ---
Author Organization [place] - [facility], Allergy Address [address] [place] [address] [address] [place] [address] Assessment Encounter Date Assessment Date Assessment LastModified by Organization Details LastModified Time 03/15/2025 03/15/2025 1. 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 Bilateral sensorineural hearing loss We discussed the patient's sensorineural hearing loss, which is asymmetric. On exam today, there are no otologic abnormalities. There are several possible etiologies for asymmetric sensorineural hearing loss, one of which is retrocochlear pathologies. We discussed the option of MRI brain to evaluate for the presence of retrocochlear pathology. The patient would like to proceed with MRI Brain w/ contrast - IAC protocol. Follow-up after Not available 03/16/2025 11:14:28 06/14/2025 06/14/2025 1. 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 Bilateral sensorineural hearing loss We discussed the patient's sensorineural hearing loss, which is asymmetric. On exam today, there are no otologic abnormalities. There are several possible etiologies for asymmetric sensorineural hearing loss, one of which is retrocochlear pathologies.r MRI Brain was within normal limits. Medically cleared for hearing aids Follow-up every 2 years to recheck hearing Not available 06/18/2025 11:00:58 Plan of Treatment Reminders Order Date Submit Date Provider Last Modified By Organization Details Last Modified Time Details Appointments None recorded. Lab None recorded. Referral None recorded. Procedures None recorded. Surgeries None recorded. Imaging MRI, brain + internal auditory canal, w/wo contrast - MRI, BRAIN + INTERNAL AUDITORY CANAL, W/WO CONTRAST 2024 025 [email or web address] [facility] ([facility]), [address] [place], [address], 15:00:50 Medication Orders None recorded. Patient TargetsNo targets recorded. Patient InstructionsNo instructions recorded. Reason for Referral None Reported. Results Created Date Observation Date Name Description Value Unit Range Abnormal Flag Note LastModifiedBy Organization Detail LastModifiedTime 03/16/20 audio gram No observ ation record ed. BARCODE Not Available 2024 09:04:07 04/01/20 25 03/30/2025 MRI, brain + inter nal audit ory canal , w/wo contr ast No observ ation record ed. [email or web address] [facility] [address] [place], [address], 04/19/2025 13:56:15 06/05/20 25 02/21/2019 audio gram No observ ation record ed. [email or web address] Not Available 05/09 09:10:19 06/05/20 25 05/25/2025 audio gram No observ ation record ed. [email or web address] Not Available 05/09 09:11:14 06/19/20 25 10/19/2024 CT, head + brain , w/o contr ast No observ ation record ed. [email or web address] Not Available 06/08 09:29:24 06/19/20 25 04/01/2025 MRI, brain + brain stem, w/wo contr ast No observ ation record ed. [email or web address] Not Available 06/08 09:32:31 Result Notes None recorded. Problems Name Problem SNOMED Code Status Onset Date Resolution Date Notes Provider Name and Address Organization Details Recorded Time Sensorine ural hearing loss 39212158 Active 2018 Sensorine ural hearing loss, unilatera l, left ear, with unrestric tali hearing on the contralat eral side; Note: Date Diagnosed : 02/27/2019 11:53 AM (H90.42) Not Available [facility] 4 03:07:07 Dysphonia 11592926 Active 2020 Hoarsenes s; Note: Date Diagnosed : 07/04/2021 11:24 AM (R49.0) Not Available [facility] 4 03:07:05 Sensorine ural hearing loss of left ear with normal hearing on right side 6635262282 Active 2024 EDEN CELIS [address] [facility] [place] [address], [place], [address] , [facility] - [facility] 5 14:04:00 Asymmetri jonathan hearing loss 378047606 Active 2024 ELY AGUILLON MD [address] [facility],[place] [address], [facility] [place], [address] , [facility] 5 14:39:22 Impacted cerumen of bilateral ears 75521324350 27498 Active 2024 ELY AGUILLON MD [address] [facility],[place] [address], [facility] [place] [place], [address] , [facility] 5 11:14:36 Problem Notes None recorded. Procedures Surgical History Date Name Laterality Status Provider Name and Address Organization Details Recorded Time 5 Comp Audio with Tymps - 70303 & 23773 completed EDEN CELIS [address] [facility],[place] [address], [place], [address], [facility] 03/15/2025 14:00:31 5 Cerumen removal with microscope bilateral completed ELY AGUILLON MD [address] [place] [address],[address], [address], [facility] 03/16/2025 11:13:56 Imaging Results None recorded. Procedure Notes None recorded. Medical Equipment None Reported. Allergies Allergen ID Allergen Name Allergen Category Reaction Reaction Severity Criticality Documentation Date Start Date Code Code System Note Provider Name and Address Organization Details Recorded Time 225538 penicilli n V potassium medicatio n other Not available Not available 03/21/202420263 5 RxNorm React ion: unkno wn, unspe cifie d;; Not Available [facility] 4 01:26:54 688598 lisinopri l medicatio n Not available Not available Not available 06/14/20252023 45988 RxNorm Other react ions and sever ities : 'Keaton estio n of the throa t', and 'Sore Throa t'. Oriana monzon [place] - [facility] 14:52:35 028934 penicilli n G Not available rash Not available Not available 06/14/20252023 7980 RxNorm Oriana monzon [place] - [facility] 14:52:35 Medications Name Sig Start Date Stop Date Status Note LastModified by Organization Details LastModified Time cyclobenz aprine 10 mg tablet 10 mg twice a day by oral route. 2024 active Not Available Not Available Not Avai lable metformin 500 mg tablet active Not Available Not Available Not Available carvedilo l 25 mg tablet active Not Available Not Available Not Available atorvasta tin 20 mg tablet active Not Available Not Available Not Available albuterol sulfate 2.5 mg/3 mL (0.083 %) solution for nebulizat ion 07/04 completed Medicati on ID: [id number] D uration Value: 8 Brand Name: albutero l sulfate Send Method: E-Prescr ibed Sub s Allowed: subs [place] Medic ationGen ericName : albutero l sulfate Not Available Not Available Not Available cetirizin e 10 mg tablet 10 mg by oral route. 12/02 completed Not Available Not Available Not Available riboflavi n (vitamin B2) 100 mg tablet 2023 active Not Available Not Available Not Avai lable FreeStyle Lancets 28 gauge active Medicati on ID: [id number] B rand Name: FreeStyl e Lancets Send Method: E-Prescr ibed Sub s Allowed: subs [place] Medic ationGen ericName : FreeStyl e Lancets Not Available Not Available Not Available prednison e 20 mg tablet active Medicati on ID: [id number] B rand Name: predniso ne Send Method: E-Prescr ibed Sub s Allowed: subs [place] Medic ationGen ericName : predniso ne Not Available Not Available Not Available clonazepa m 0.5 mg tablet active Not Available Not Available Not Available olanzapin e 10 mg tablet active Not Available Not Available Not Available amlodipin e 5 mg tablet active Medicati on ID: [id number] B rand Name: amlodipi ne Send Method: E-Prescr ibed Sub s Allowed: subs [place] Medic ationGen ericName : amlodipi ne Not Available Not Available Not Available allopurin ol 100 mg tablet TAKE 1 TABLET BY MOUTH EVERY DAY active Not Available Not Available No t Available omeprazol e 40 mg capsule,d elayed release 03/15 completed Not Available Not Available Not Available aspirin 81 mg tablet,de layed release 81 mg by oral route. active Not Available Not Available No t Available tramadol 50 mg tablet active Not Available Not Available Not Available sildenafi l 100 mg tablet TAKE ONE TABLET BY MOUTH NEEDED FOR SEXUAL ACTIVITY . ADMINIST ER 60 MINUTES BEFORE INTENDED ACTIVITY . MAX OF ONE TABLET DAILY active Not Available Not Available No t Available amlodipin e 10 mg tablet 2023 active Not Available Not Available Not Avai lable doxycycli ne monohydra te 100 mg capsule 100 mg twice a day by oral route. 12/20 completed Not Available Not Available Not Available indapamid e 1.25 mg tablet 2023 active Not Available Not Available Not Avai lable monteluka st 10 mg tablet active Medicati on ID: [id number] B rand Name: monteluk ast Send Method: E-Prescr ibed Sub s Allowed: subs [place] Medic ationGen ericName : monteluk ast Not Available Not Available Not Available mupirocin 2 % topical ointment 3 times a day by topical route. 12/20 completed Not Available Not Available Not Available gabapenti n 100 mg capsule 100 mg by oral route. active Not Available Not Available No t Available colchicin e 0.6 mg tablet TAKE 1 TABLET BY MOUTH EVERY DAY STARTING ON 02/26 active Not Available Not Available No t Available lisinopri l 40 mg tablet active Medicati on ID: [id number] B rand Name: lisinopr il Send Method: E-Prescr ibed Sub s Allowed: subs [place] Medic ationGen ericName : lisinopr il Not Available Not Available Not Available fluticaso ne propionat e 50 mcg/actua tion nasal spray,aly pension active Not Available Not Available Not Available Flovent HFA 110 mcg/actua tion aerosol inhaler 07/04 completed Medicati on ID: [id number] D uration Value: 60 Brand Name: Flovent HFA Send Method: E-Prescr ibed Sub s Allowed: subs [place] Medic ationGen ericName : Flovent HFA Not Available Not Available Not Available sildenafi l (pulmonar y hypertens ion) 20 mg tablet 07/04 completed Medicati on ID: [id number] D uration Value: 7 Brand Name: sildenaf il (pulm.hy pertensi on) Send Method: E-Prescr ibed Sub s Allowed: subs [place] Speci al Instruct ion: TAKE UP TO 5 TABLETS MAXIMUM ONCE A DAY Medi cationGe nericNam e: sildenaf il (pulm.hy pertensi on) Not Available Not Available Not Available ProAir HFA 90 mcg/actua tion aerosol inhaler 03/15 completed Medicati on ID: [id number] B rand Name: ProAir HFA Send Method: E-Prescr ibed Sub s Allowed: subs [place] Medic ationGen ericName : ProAir HFA Not Available Not Available Not Available Pulmicort Flexhaler 90 mcg/actua tion breath activated 03/15 completed Medicati on ID: [id number] B rand Name: Pulmicor t Flexhale r Send Method: E-Prescr ibed Sub s Allowed: subs [place] Medic ationGen ericName : Pulmicor t Flexhale r Not Available Not Available Not Available FeroSul 325 mg (65 mg iron) tablet active Not Available Not Available Not Available Freestyle InsuLinx strips active Medicati on ID: [id number] B rand Name: Freestyl e InsuLinx Send Method: E-Prescr ibed Sub s Allowed: subs [place] Medic ationGen ericName : Freestyl e InsuLinx Not Available Not Available Not Available Easy Touch Alcohol Prep Pads active Not Available Not Available No t Available Breo Ellipta 200 mcg-25 mcg/dose powder for inhalatio n active Not Available Not Available Not Available Spiriva Respimat 1.25 mcg/actua tion solution for inhalatio n active Medicati on ID: [id number] B rand Name: Spiriva Respimat Send Method: E-Prescr ibed Sub s Allowed: subs [place] Medic ationGen ericName : Spiriva Respimat Not Available Not Available Not Available Vitals Date Recorded Body height Body mass index (BMI) Body weight Provider Name and Address Organization Details Last Updated DateTime 03/15/2025 172.72 cm 32.1 kg/m2 80802.99 g Rose Sami [place] - [facility] 03/15/2025 13:34:50 Date Recorded Body height Body mass index (BMI) Body weight Provider Name and Address Organization Details Last Updated DateTime 06/14/2025 172.72 cm 32.1 kg/m2 50339.99 g Oriana Ligia [facility] 06/14/2025 14:52:28 Social History None recorded. Functional Status None recorded. Mental Status None recorded. Family History Nothing Reported. Medical History Condition Response Anemia Y Hypertension Y Asthma Y Past Encounters Encounter ID Performer Location Encounter Start Date Encounter Closed Date Diagnosis/Indication Diagnosis SNOMED-CT Code Diagnosis ICD10 Code Diagnosis IMO Codes Diagnosis Note [id number] ELY AGUILLON MD [facility] [address] [address] 03/15/2025 13:16:26 03/15/2025 14:41:27 Sensorineural hearing loss of left ear with normal hearing on right side 1492662084 H90.42 [id number] Audiologic al evaluation results:Ri ght ear:Normal auditory thresholds with excellent word recognitio n.Left ear:Normal sloping to sensorineu ral hearing loss with excellent word recognitio n.Tympanom etry:Right Ear:Type ALeft Ear:Type A Asymmetric al hearing loss 195323966 H91.8X3 644252 Impacted c erumen of bilateral ears 5018454437 476953 H61.23 080775 [id number] ELY AGUILLON MD [facility] [address] [address] 06/14/2025 14:16:38 06/14/2025 15:19:42 Sensorineural hearing loss of left ear with normal hearing on right side 4331940556 H90.42 [id number] Audiologic al evaluation results:Ri ght ear:Normal auditory thresholds with excellent word recognitio n.Left ear:Normal sloping to sensorineu ral hearing loss with excellent word recognitio n.Tympanom etry:Right Ear:Type ALeft Ear:Type A Asymmetric al hearing loss 643580675 H91.8X3 753124 Health Concerns Section Related Observation LastModified by Organization Detai ls LastModified Time None Recorded Concern Status LastModified by Organization Details LastModified Time None Recorded Advance Directives Directive None Recorded Payers Insurance Date Sequence Insurance Name Policy Number Policy Patel Covered Member ID Patel Member ID Guarantor Name 06/14/2025 1 [facility] (MEDICAID HMO) [id number] [place] [id number] [place] 03/15/2025 1 [place] [facility] [place] [id number] [place] Notes Date Note Type Note Provider Name and Address Organization Details Recorded Time 03/15/2025 text/html This patient presents today with a history of hearing loss for hearing evaluation. History of cerumen impaction: yesHearings loss: yes L>RQtip use: noTinnitus: yesVertigo: noPain: noDrainage: noHistory of ear infections: noHistory of ear surgeries: no Audiogram was reviewed and interpreted independently today, which shows moderate high frequency sensorinueral hearing loss on the L>R. Asymmetric. ELY AGUILLON MD [address] [place] [address], [phone] - [facility] 03/16/2025 11:14:51 06/14/2025 text/html ROS as noted in the HPI This patient presents today with a history of hearing loss for hearing evaluation. History of cerumen impaction: yesHearings loss: yes L>RQtip use: noTinnitus: yesVertigo: noPain: noDrainage: noHistory of ear infections: noHistory of ear surgeries: no Audiogram was reviewed and interpreted independently today, which shows moderate high frequency sensorinueral hearing loss on the L>R. Asymmetric. MRI reviewed and interpreted independently today - no abnormalities. ELY AGUILLON MD [address] [place] [address], [place], [address], [facility] - [facility] 06/18/2025 11:01:13
--- OUTSIDE RECORDS SUMMARY | 2025-09-12 13:19 | XMS_ITS | Clinical Summary ---
Author Organization [address] [place] [address] [place] [address] Phone Care Team Providers Care Eligibility And Occupancy Interviewer Name Role Phone Ileana Roman MD Primary Care Provider [phone] Allergies Active Allergy Reactions Criticality Noted Date [...] History Medical History Date Comments Diabetes mellitus ([facility] V24, [facility] V28) Bipolar disorder ([facility] V24, [facility] V28) Arthritis Hypertension Social History Tobacco Use [...] mmol/L LAB CHEMISTRY METHOD 11/30/2024 9:40 PM [facility] Potassium 3.7 3.5 - 5.5 mmol/L LAB CHEMISTRY METHOD 11/30/2024 9:40 PM [facility] Chloride 99 96 - 110 mmol/L LAB CHEMISTRY METHOD 11/30/2024 9:40 PM [facility] CO2 28 21 - 32 mmol/L LAB CHEMISTRY METHOD 11/30/2024 9:40 PM [facility] Anion Gap 7 3 - 11 LAB CHEMISTRY METHOD 11/30/2024 9:40 PM [facility] Glucose 143(H) 70 - 100 mg/dL LAB CHEMISTRY METHOD 11/30/2024 9:40 PM [facility] BUN 13 5 - 25 mg/dL LAB CHEMISTRY METHOD 11/30/2024 9:40 PM [facility] Creatinine 1.01 0.70 - 1.30 mg/dL LAB CHEMISTRY METHOD 11/30/2024 9:40 PM [facility] eGFR 85 >=60 mL/min/1. 73m2 LAB CHEMISTRY METHOD 11/30/2024 9:40 PM [facility] Comment:Calculation based on the Chronic Kidney Disease Epidemiology Collaboration (CKD-EPI) equation refit without adjustment for race. BUN/Creatinine Ratio 12.9 LAB CHEMISTRY METHOD 11/30/2024 9:40 PM [facility] Calcium 8.9 8.5 - 10.5 mg/dL LAB CHEMISTRY METHOD 11/30/2024 9:40 PM [facility] Blood Venous blood specimen / Unknown Venipuncture / Unknown 11/30/2024 8:54 PM EST 11/30/2024 9:14 PM EST [facility] BLOOD ORDERABLES Final Resul t [facility] ([facility] [address] [place] [address], * External Colonoscopy Report (03/17/2013 3:13 PM EDT) Anatomical Region Laterality Modality Endoscopy Historical Provider GI~PROCEDURE ORDERABLES F inal Result from Last 3 Months or Most Recently Relevant to Health Maintenance [place] [id number] [employer] [address] [place] [address] Care Teams Eligibility And Occupancy Interviewer Relationship Specialty Start Date End Date Ileana Roman MD [address] [place] [address] PCP - General 05/05/13
--- OUTSIDE RECORDS SUMMARY | 2025-09-12 13:19 | XMS_ITS | Data Portability ---
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 We discussed potential treatment options at this time. Patient would like to follow-up with Dr. Dey to discuss surgery as he is sure he would like to proceed with it at this time. In the meantime he would like to utilize an ASO versus after brace, prescription provided today. We discussed the importance of showing up to the visit and compliance with appointments. Follow-up was arranged with Dr. Dey to discuss surgery and obtain any additional imaging or labs if needed. Patient understands and agrees with the plan. All questions were answered. The patient is ambulatory, but has weakness and/or instability of their extremity which requires stabilization from this semi-rigid/rigid orthosis to improve their function. Verbal and written instructions for the use and application of this item were given. Patient was instructed that should the brace result in increased pain, decreased sensation, increased swelling or an overall worsening of their medical condition, to please contact our office immediately. Speech recognition manager floor software was used to create portions of this document. An attempt at proofreading has been made to minimize errors. Please call for corrections. Joselyn Conti PA-C [address] [place], [place] [address]eyadK[facility] [address], [place], [address], [facility] - [facility] 05/03/2025 15:22:04
== END 2025-09-12 11:07 | disposition home or self-care (01) ==
LOC: HO.HAP 11:06
PROVIDERS: Visit Provider Otolaryngology Facial Plastic Surgery
DX: Z13.89 Encounter for screening for other disorder (principal)